=== PATIENT | female | born 1960 | race Caucasian/White ===

== ENCOUNTER → 2017-05-26 | Day surgery (SDC) | payer MEDICAID ==
[2017-05-26] VITALS (11 sets, daily range): BP systolic 125–169; BP diastolic 70–98
[~2017-05-26] VITALS: Ht 165.1 cm; Wt 90.7 kg
[~2017-05-26] MED LIST: CELEXA40 MG PO; CLONAZEPAM 1MG T1 MG PO; ESTRACE 0.5MG0.5 MG PO; LISINOPRIL HCTZ1 TAB PO; NIFEDIPINE XL 330 MG PO; PANTOPRAZOLE SO40 MG PO; SEROQUEL 100MG100 MG PO; SIMVASTATIN40 MG PO; TIZANIDINE HCL 44 MG NG; VENTOLIN H0.09 MG/AC IH
--- NOTE | 2017-05-26 12:49 | Procedure Note ---
Procedure detail Date of procedure: 05/26/17 Anesthesiologist: Yves Monreal M.D. 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 She has failed all conservative treatment including surgery, physical therapy, injections and oral medications. She also has bilateral knee pain. She presents for intrathecal pump trial today. Procedure detail: Informed consent was obtained and the risk and benefits of the procedure with this point patient. Patient was taken to the procedure room. She was placed prone on the procedure table. She was prepped and draped in sterile fashion. C- arm fluoroscopy was used to view the lumbar spine. The skin and septated tissues were anesthetized using lidocaine. A 17-gauge spinal needle was inserted and advanced into the L4-L5 interspace until clear CSF was obtained. After this intrathecal catheter was inserted and advanced very easily to the T12 vertebral body. The needle was withdrawn. We were able to withdraw clear CSF through the catheter. The catheter was secured in place and the patient was taken to recovery in stable condition. The patient tolerated the procedure well with no complications. The patient got one set of vitals completed and then was bolused with fentanyl 50 g single shot. The patient was evaluated after 2 hours. She was at least 50 percent better and she was walking better with increase functional capacity Physical therapy did come and work with the patient post procedure. The patient improved significantly with function. The catheter was pulled and a Band-Aid was placed. Patient was discharged home. Patient does want to proceed with permanent placement. This was a successful trial so we will proceed with permanent placement of permanent intrathecal pain pump with Dilaudid 1 mg per mL to start at 0.1 mg per day. Catheter entry will be at L4-L5 and catheter tip will be at T12. Plan and disposition: We will discharge the patient home. We will plan on permanent placement of intrathecal pain pump. Catheter entry will be at L4-L5 and catheter tip will be T12. This will be an intrathecal Dilaudid pain pump 1 mg per mL to start at 0.1 mg per day. at [id number]
== END ==
LOC: PM 09:48
PROC: 3E0R3BZ Introduction of Anesthetic Agent into Spinal Canal, Percutaneous Approach (ICD-10-PCS; principal; 2017-05-26)
PROC: 3E0R33Z Introduction of Anti-inflammatory into Spinal Canal, Percutaneous Approach (ICD-10-PCS; 2017-05-26)
DX: M51.16 Intervertebral disc disorders with radiculopathy, lumbar region (principal); M96.1 Postlaminectomy syndrome, not elsewhere classified; M25.562 Pain in left knee; M25.561 Pain in right knee

== ENCOUNTER 2017-10-10 14:55 | Day surgery (SDC) | payer MEDICAID ==
[~2017-10-10] VITALS: Ht 165.1 cm; Wt 96.2 kg
[2017-10-10 15:06] VITALS: BP 153/97
[2017-10-10 15:34] VITALS: BP 153/97; BP 161/105
[2017-10-10 15:52] VITALS: BP 157/87
--- NOTE | 2017-10-10 15:57 | Procedure Note ---
Procedure detail Date of procedure: 10/10/17 Anesthesiologist: Juvenal Jc Complications: None Pre-procedure diagnosis: Degenerative disease lumbar spine multiple levels. Lumbar radiculopathy symptoms. Post-procedure diagnosis: Same. Indications for procedure: Very pleasant 57-year-old white female returns our pain clinic today for intrathecal pain pump refill. Patient is complaining of increased lumbar back pain as well as bilateral hip and leg pain. She called our office a couple of months ago regarding the increase in pain. Patient was asked to come into the office for adjustment and never showed. Today she presents for intrathecal pain pump refill. We will also increase her rate. Patient's pump currently contains hydromorphone 1 mg/mL at 0.13 mg per day. Objective: Patient's awake alert oriented 3. In acute distress. Flexion extension lumbar spine somewhat guarded secondary to pain. Deep tendon reflexes upper lower extremities normal. Motor strength upper and lower extremities normal. There is no gross sensory deficit. Gait is normal. Procedure detail: Details of procedure is going to the patient. The patient taken to procedure room placed in sitting position. The area over the pain pump was cleansed using chlorhexidine as cleansing solution. The pump was accessed with ease using a 22- gauge needle from the refill kit. 6 mL of solution was withdrawn and discarded appropriate. The pump was then filled with 20 mL of hydromorphone 1 mg/mL. The pump was interrogated. The rate was increased to 0.2 mg per day. Patient tolerated the procedure without difficulty. There were no complications. Plan and disposition: Patient was reevaluated 10 minutes post procedure. She's doing very well. She returns see us in 2 weeks for potential increase in the rate. at 1946
[2017-10-10 16:57] LABS: AMPHETAMINES/METAMPHETAMINES NEGATIVE ng/mL (<1000)
== END 2017-10-10 15:47 | disposition home or self-care (01) ==
LOC: LAB 14:55 → PM 14:55
PROVIDERS: Nurse Anesthetist, Certified Registered
DX: M51.16 Intervertebral disc disorders with radiculopathy, lumbar region (principal)